=== PATIENT | female | born 1985 | race Caucasian/White ===

== ENCOUNTER → 2017-12-07 13:58 | Outpatient (CLI) | payer MEDICAID, SELFPAY ==
[2017-12-07 17:12] LABS: Chlamydia Trachomatis by PCR Negative (Negative); Neisserai gonorrhoeae by PCR Negative (Negative); Probe Check PASS; Sample Adequacy Control PASS; Specimen Processing Control PASS
== END ==
PROVIDERS: Visit Provider Obstetrics & Gynecology
DX: Z11.3 Encounter for screening for infections with a predominantly sexual mode of transmission (principal)
CPT/HCPCS: 87491; 87591

== ENCOUNTER 2017-12-17 08:56 | Emergency (ER) | payer MEDICAID, SELFPAY ==
[2017-12-17 08:58] VITALS: BP 158/87; PULSE 70; RESP 17; TEMP 36.6; O2SAT 98; BMI 62.1
--- NOTE | 2017-12-17 09:13 | ED.VISSUMM ---
- ER Visit Summary Date of Service: 12/17/17 Chief Complaint: Left-sided neck pain, headache History of Present Illness: The patient is a 32 F with history of migraine headache who is otherwise healthy presents to the emergency department left-sided neck pain. Patient states she has been having the symptoms intimately for the past 3 weeks. She states she noticed some swelling in her glands. Over the past few days the pain is gotten worse. Today, she began have worsening pain in her posterior neck that was worse with movement. She denies any trouble speaking or swallowing. Eating does not seem to make it worse. She was able to take her medications this morning without issue. She denies any fevers or chills. She has had no visual change. She states this feels different than in her normal migraines. She denies any history of immunosuppression. She denies any changes in gait. Physical Examination: Well-appearing patient is in no acute distress. Head is normocephalic, atraumatic. Pupils equal round reactive, extraocular muscles intact. There is no temporal artery tenderness. There is no vesicular rash. Neck supple. Kernig's and Brudzinski's are negative. Patient does have some tender adenopathy on the left. Submental space is soft. No evidence of salivary obstruction. No trismus or stridor. Heart regular rate and rhythm. Lungs clear, chest nontender. Abdomen soft, nontender, nondistended. Neuro exam displays no focal or lateralizing deficit. 2+ symmetric lower extremity reflexes. No clonus. No ataxia or gait abnormality. Test Results: [] Emergency Department Course and Treatment: Patient symptoms do seem more consistent with a cervical lymphadenitis. She is no bruit. She has no symptoms that concern me otherwise for vertebral or basilar artery dissection. The patient has no evidence of Too angina. She has no trismus or stridor. There is no significant edema. She is tender along the left anterior cervical lymph nodes. She was complaining of mild headache. Patient was given migraine abortive medications with improvement. With her persistence of symptoms, I am going to treat the patient with oral antibiotics. She was counseled on concerning symptoms and reasons to return. The patient will be discharged home. Treatment Plan: [] Disposition: Discharge Impression:. Left cervical lymphadenitis This note was generated with [employer] software. It may contain incorrect words, spelling, and punctuation that were not noted in review of the chart prior to signing ED Disposition - Plan for ED Patient: Chief Complaint: Other, Pain/Inj Instructions: ED Cervical Adenitis Abx Tx Prescriptions: Amox/Clavulanate Tablet [Augmentin Tablet] 875 mg PO Q12H #20 tab Referrals: Thomas Taylor MD [Primary Care Provider] -
[2017-12-17] MEDS: 0.9% Normal Saline 1,000 ML 999 ML IV (09:37)
[2017-12-17] MEDS: Ketorolac 30 MG/ML Syringe IV (09:41)
[2017-12-17] MEDS: DiphenhydrAMINE 50 MG/ML Syringe 25 MG IV (09:41)
[2017-12-17] MEDS: proCHLORPERazine 10 MG/2 ML Vial IV (09:41)
[2017-12-17 10:27] VITALS: BP 147/89; PULSE 83; RESP 16; O2SAT 99
== END 2017-12-17 10:28 | disposition home or self-care (01) ==
LOC: ED 09:58
PROVIDERS: Emergency Provider Emergency Medicine; Family Provider Family Medicine; PCP Family Medicine
DX: I88.9 Nonspecific lymphadenitis, unspecified (principal); R51 Headache; E66.9 Obesity, unspecified; I10 Essential (primary) hypertension; Z79.899 Other long term (current) drug therapy
CPT/HCPCS: 96361; 96374; 96375; 99283; J7030; A4216

== ENCOUNTER → 2019-03-30 | Outpatient (CLI) | payer MEDICAID, SELFPAY ==
[2019-04-02 12:49] LABS: HPV Reflexed? NOT INDICATED
== END | disposition home or self-care (01) ==
LOC: LABSPEC 13:51
PROVIDERS: Visit Provider Obstetrics & Gynecology
DX: Z12.4 Encounter for screening for malignant neoplasm of cervix (principal)
CPT/HCPCS: 88175; G0145

== ENCOUNTER → 2019-06-01 | Outpatient (CLI) | payer MEDICAID, SELFPAY ==
[2019-06-01 13:25] LABS: Lipase 107 U/L (73-393)
== END | disposition home or self-care (01) ==
LOC: LABSPEC 13:00
PROVIDERS: Family Provider Family Medicine; PCP Family Medicine; Referring Provider Family Medicine; Visit Provider Family Medicine
DX: R10.33 Periumbilical pain (principal); R11.0 Nausea
CPT/HCPCS: 83690; 86140

== ENCOUNTER 2021-06-03 20:27 | Emergency (ER) | payer MEDICAID, SELFPAY ==
[2020-07-10 14:24] VITALS: BMI 62.1
[2021-06-03 20:28] VITALS: BP 136/73; PULSE 80; RESP 18; TEMP 36.1; O2SAT 98; BMI 62.8
--- NOTE | 2021-06-03 22:14 | EDS_ITS ---
HPI HPI - Female History of Present Illness Chief Complaint: Vag Bleeding Informant: patient Pain Pain: Positive for Pelvic Pain Onset: Today Context: Gradual Onset Timing: Intermittent Quality: Positive for Cramping Current Severity: Mild Maximum Severity: Mild Bleeding Issue: Positive for Vaginal bleeding and Passing clots Onset: Today Timing: Intermittent Current Severity: Similar to period Severity: Moderate Associated Symptoms P: 2 Ab: 0 Narrative Narrative: 35-year-old female G2, P2 Ab0. Has an IUD in place for last 5 years. States her last menstrual period was about 4 months ago. Today she started having vaginal bleeding with clots and pelvic cramping. She denies discharge. She denies dysuria or hematuria. She denies fever. She has had 2 prior C- sections but no other MEDICAL TECHNOLOGIST PRN surgery. Also a prior appendectomy and cholecystectomy. Prior similar symptoms: No Recent Illness/Hospitalization: No PFSH PFSH Medical History Anxiety CPAP (continuous positive airway pressure) dependence Depression Hypertension Sleep apnea Home Medications propranolol 40 mg PO BID 01/08/17 [History Last Taken Unknown] cholecalciferol (vitamin D3) [Vitamin D3] 1,200 units PO DAILY 04/12/17 [History Last Taken Unknown] ferrous sulfate 1 tab PO DAILY 04/12/17 [History Last Taken Unknown] levonorgestrel [Mirena] 1 ea VAGINALLY UD 04/12/17 [History Last Taken Unknown] sertraline 50 tab PO DAILY 04/28/17 [History Last Taken Unknown] Multi Vitamin 1 tab DAILY 06/03/21 [History Last Taken Unknown] Allergy/AdvReac Type Severity Reaction Status Date / Time No Known Allergies Allergy Verified 06/03/21 20:31 Surgical History History of appendectomy History of History of cholecystectomy Social History Smoking Status: Never smoker ROS ROS ED ROS Narrative Patient denies recent illness. Review of Systems ROS Unobtainable: Denies due to encephalopathy Constitutional Constitutional ED: Denies chills or fever(s) Eyes Eyes: Denies change in vision ENT ENT ED: Denies ear pain or sore throat Cardiovascular Cardiovascular: Denies chest pain or palpitations Respiratory/Chest Respiratory/Chest: Denies cough or dyspnea Gastrointestinal Gastrointestinal: Denies abdominal pain, diarrhea, nausea or vomiting Genitourinary Genitourinary ED: Denies dysuria or hematuria Musculoskeletal Musculoskeletal: Denies myalgias Integumentary Denies rash Neurologic Neurologic: Denies headache(s) Psychiatric Psychiatric: Denies depression Endocrine Endocrinology: Denies polyuria Hematologic/Lymphatic Hematologic/Lymphatic: Denies easy bruising Allergic/Immunologic Allergic/Immunologic ED: Denies urticaria EXAM Physical Exam Narrative Exam Narrative: Well-appearing 35-year-old female. Vital signs are stable afebrile. Blood pressure 136/73 pulse of 80. HEENT exam unremarkable. Lungs clear to auscultation. Heart regular rate and rhythm no murmur. Abdomen soft nontender normal bowel sounds no peritoneal signs. Patient is moving all 4 extremities. No edema. Skin unremarkable no bruising. Neurologically she is awake and alert. Const Vital Signs: 06/03/21 20:28 Temperature 96.9 F L Temperature Source Temporal Pulse Rate 80 Respiratory Rate 18 Blood Pressure 136/73 H Blood Pressure Mean 94 Pulse Ox 98 Oxygen Delivery Method Room Air Positive well nourished, well developed and obese General Appearance ED: well developed and NAD Nutritional Appearance: obese HEENT Reports moist mucous membranes Negative for trauma or tenderness Eyes PERRL and EOMs intact bilaterally Neck no lymphadenopathy, supple and no JVD Thyroid: Negative for tender Chest Wall inspection of chest normal and palpation of chest normal Resp normal respiratory effort and clear to auscultation bilaterally Cardio regular rate, regular rhythm, S1 normal heart sound, no murmurs and no JVD GI normal to inspection, nondistended, normoactive bowel sounds, soft to palpation, non-tender, non-distended and no masses Auscultation: normoactive bowel sounds Palpation: Negative for tender, guarding or rigid Extremity normal to inspection and full ROM General Extremety ED: Negative for edema or tenderness General Extremity: Negative for edema Neuro oriented x3 and CN's II-XII intact bilaterally Sensorium / Orientation: alert, oriented to person, oriented to place and oriented to time Psych mental status grossly normal Skin no rashes or lesions noted MDM MDM MDM Narrative Medical decision making narrative: 35-year-old female G2, P2 Ab0 with an IUD. Complaint of vaginal bleeding pelvic cramping. Serum test to be obtained and blood count. Pelvic exam not done around 11:20 PM female nurse present in room. External exam unremarkable. Speculum exam small amount of blood in the vaginal vault. No clots. No discharge. Bimanual exam minimal right adnexal discomfort. Difficult due to the patient's body habitus. I could not appreciate either ovary. Patient clinically doing well. She had I went over her labs. She will follow-up with [facility] her gynecology group for further evaluation. Lab Data Attestation: I reviewed the patient's lab results. Lab results narrative: CBC unremarkable hemoglobin 12.4 patient's baseline is typically 12-14. test negative. Labs: Laboratory Results - last 24 hr 06/03/21 06/03/21 22:18 22:18 WBC 9.4 RBC 4.11 L Hgb 12.4 Hct 38.5 MCV 93.7 MCH 30.2 MCHC 32.2 RDW Std Deviation 43.6 RDW Coeff of Scooby 12.7 Plt Count 293 MPV 9.4 Serum , Qual NEGATIVE Discharge Plan Triage Chief Complaint: Vag Bleeding ED Provider: Adarsh Flynn Dx/Rx/DC Orders Clinical Impression: Abnormal vaginal bleeding Instructions: ED Dysfunctional Uterine Bleeding Prescriptions: No Action propranolol 40 MG tablet 40 mg PO BID RF: 0 levonorgestrel [Mirena] 1 EACH Iud 1 ea VAGINALLY UD RF: 0 ferrous sulfate 325 MG tablet 1 tab PO DAILY RF: 0 cholecalciferol (vitamin D3) [Vitamin D3] 1,000 UNIT capsule 1,200 units PO DAILY RF: 0 sertraline 50 MG tablet 50 tab PO DAILY RF: 0 Multi Vitamin 1 tab DAILY RF: 0 Primary Care Provider: Thomas Taylor Referrals: Thomas Taylor MD [Primary Care Provider] - Marisol Day DO [STAFF PHYSICIAN] - As soon as possible Activity Restrictions/Additional Instructions: Follow-up with [facility] soon as possible. Call tomorrow to get an appointment. Plenty of fluids and rest. Alternate Tylenol Motrin for pain. Disposition Disposition: Home, Self Care
[2021-06-03 22:29] LABS: Hematocrit 38.5 % (37-47); Hemoglobin 12.4 g/dL (12.0-15.0); Mean Corp Hgb Conc 32.2 g/dL (32-36); Mean Corpuscular Hgb 30.2 pg (27.0-32.0); Mean Corpuscular Volume 93.7 fL (81-99); Mean Platelet Vol. 9.4 fl (6.2-12.0); Platelet Count 293 K/mm3 (150-450); RBC Distribution Width CV 12.7 % (11.6-14.6); RBC Distribution Width SD 43.6 fl (35.1-43.9); Red Blood Count 4.11 M/mm3 (4.2-5.4); White Blood Count 9.4 K/mm3 (4.4-11.0)
[2021-06-03 22:42] LABS: Internal QC Validated? YES +Cl - CLEAR BKGD; Pregnancy, Serum, hCG Quali. NEGATIVE Negative
[2021-06-03 23:29] VITALS: BP 133/78; PULSE 88; RESP 16; O2SAT 98
== END 2021-06-03 23:31 | disposition home or self-care (01) ==
PROVIDERS: Emergency Provider Emergency Medicine; PCP Family Medicine
DX: N93.9 Abnormal uterine and vaginal bleeding, unspecified (principal); F41.9 Anxiety disorder, unspecified; F32.9 Major depressive disorder, single episode, unspecified; I10 Essential (primary) hypertension; E66.9 Obesity, unspecified; Z79.899 Other long term (current) drug therapy
CPT/HCPCS: 84703; 85027; 99282; A4216

== ENCOUNTER → 2021-08-20 11:30 | Outpatient (CLI) | payer MEDICAID, SELFPAY ==
--- NOTE | 2021-08-20 10:15 | EMB_PTH ---
PATIENT: VON BRICENO LOC: [facility] U#:[id number] AGE/SX: 40/F ROOM: RE08/20/[address]: Dr. Marisol Day DO : 1985 BED: DIS: SPEC #: [id number] RECD: 08/20/21 11:31 STATUS: RUPERTO JEEVAN #: [id number] LILLI: 08/20/21 10:[address]: Marisol Day DEPT: SURGICAL PATHOLOGY RECD BY: Marni Pang ENTERED: 08/20/21 11:43 SP TYPE: ENDOM BX/C LIZZY DR: Dr. Thomas Taylor MD Tissues: Endometrium, NOS Procedures: Surgery Specimen Level IV HEADER OPERATION: Endometrial biopsy PRE-OP DIAGNOSIS: Abnormal uterine bleeding TISSUE SUBMITTED: Endometrial biopsy MICROSCOPIC DIAGNOSIS Endometrial biopsy: Scant minute fragments of superficial benign endometrial tissue. Fragments of blood clot. See comment. SARAH BETH:ludin 08/21/2021 COMMENT The specimen predominantly consists of blood clots. Correlation with clinical findings and appropriate follow up are necessary. Rebiopsy is suggested if clinically indicated. MICROSCOPIC DESCRIPTION Slides are reviewed. GROSS DESCRIPTION Received in fixative is one container labeled with the patient's name and designated endometrial biopsy. The specimen consists of multiple fragments of hemorrhagic soft tissue that in aggregate measure 3 x 2.5 x 0.3 cm. The specimen is totally submitted in one cassette. / SJ:ludin 08/20/21 TC: Cannot code CPT: 19616
[2021-08-20 12:35] LABS: Ferritin 221 ng/mL (8-252); T4 Free Direct 1.03 ng/dL (0.76-1.46); Thyroid Stim Hormone (TSH) 1.47 uIU/mL (0.358-3.74)
== END ==
PROVIDERS: PCP Family Medicine; Referring Provider Student in an Organized Health Care Education/Training Program; Visit Provider Student in an Organized Health Care Education/Training Program
DX: N93.9 Abnormal uterine and vaginal bleeding, unspecified (principal)
CPT/HCPCS: 36415; 82728; 84439; 84443; 88305

== ENCOUNTER → 2021-09-20 | Outpatient (CLI) | payer MEDICAID, SELFPAY | END | disposition home or self-care (01) | LOC: LABSPEC 10:56 | PROVIDERS: PCP Family Medicine; Visit Provider Student in an Organized Health Care Education/Training Program | DX: Z03.818 Encounter for observation for suspected exposure to other biological agents ruled out (principal) | CPT/HCPCS: 87635; U0005; U0003 ==

== ENCOUNTER 2021-09-26 08:04 | Day surgery (SDC) | payer MEDICAID, SELFPAY ==
[2021-09-20 12:16] LABS: Hematocrit 38.5 % (37-47); Hemoglobin 12.2 g/dL (12.0-15.0); Mean Corp Hgb Conc 31.7 g/dL (32-36); Mean Corpuscular Hgb 29.1 pg (27.0-32.0); Mean Corpuscular Volume 91.9 fL (81-99); Mean Platelet Vol. 9.6 fl (6.2-12.0); Platelet Count 340 K/mm3 (150-450); RBC Distribution Width SD 43.4 fl (35.1-43.9); Red Blood Count 4.19 M/mm3 (4.2-5.4); White Blood Count 8.4 K/mm3 (4.4-11.0)
--- NOTE | 2021-09-25 20:55 | HP.PCM.OB_ITS ---
History and Physical Date of Admission: 09/26/21 HISTORY OF PRESENT ILLNESS: On 09/20/2021, Bailee Higuera, a 36 year old female 2 0 0 0 2, presented for: hysteroscopy, dilation and curettage, Lani ablation for heavy menstrual bleeding. Has expulsed IUD. Required progesterone to decrease last heavy menstrual bleed. Interfering with daily life. ALLERGIES: NKA and No Known Drug Allergies MEDICAL HISTORY: 1. Obesity 2. Depression 3. Hypertension MEDICATIONS HISTORY: 1. Multi For Her 18 mg iron-600 mcg-80 mcg tablet, daily 2. propranolol 40 mg tablet, BID 3. Zoloft 50 mg tablet 4. iron 325 mg (65 mg iron) tablet, 1po qday REVIEW OF SYSTEMS: GENERAL - Denies fever, or chills SKIN - Denies skin changes EYES - Denies visual changes EARS - Denies difficulty hearing NOSE - Denies nasal congestion or bleeding MOUTH - Denies sore throat or difficulty swallowing NECK - Denies pain or swelling RESPIRATORY - Denies shortness of breath or wheezing CARDIOVASCULAR - Denies palpitations or chest pain GASTROINTESTINAL - Denies nausea, vomiting, diarrhea, constipation GENITOURINARY - vaginal bleeding MUSCULOSKELETAL - Denies joint or muscle pain NEUROLOGICAL - Denies localized numbness or weakness PSYCHIATRIC - Denies depression or anxiety ENDOCRINE - Denies heat or cold intolerance, weight loss or gain HEMATO-IMMUNOLOGIC - Denies excessive bleeding with cuts SURGICAL HISTORY: 1. Appendectomy 2. 06/29/2008 Amee Dsouza M.D. Repeat 3. 03/18/2005 Amee Dsouza M.D., Yamile Francis M.D. CPD 4. [place] Teeth Removal MENSTRUAL HISTORY: LMP Known?- DefiniteAmount/Duration - 2 days spotting, Regularity - Irregular, Frequency - variable days, LMP - 08/13/21, Age Onset Menarche - 12 PAST PREGNANCIES: Total Pregnancies - 2; Full Term Pregnancies - 2; Premature - 0; Abortions, Induced - 0; Abortions, Spontaneous - 0; Ectopics - 0; Multiple Births - 0; Living Children - 2 FAMILY HISTORY: No history of blood clots, bleeding disorders, or issues with anesthesi SOCIAL HISTORY: Alcohol Use - denies drinking Smoking - denies smoking Illicit Drug Use - denies use of street drugs BP- 124/80 Sitting, Right arm, regular cuff Weight- 376.0 lbs Height- 63.0 inch BMI:66.60 CONSTITUTIONAL - NAD, well nourished, and well developed SKIN - No rash, lesions, or ulcers HEENT - Normocephalic, PERRLA, EOMI NECK - No nodes, no nuchal rigidity and thyroid normal size and texture LYMPH NODES - Palpation of lymph nodes in neck and groins within normal limits LUNGS - CTA x2 without wheezes, crackles or rales CARDIAC - Regular rate and rhythm without rubs, murmurs, or gallops ABDOMEN - Without hepatosplenomegaly, distention, masses, rebound, or guarding; normal bowel sounds; no hernias EXTREMITIES - No edema or calf tenderness NEUROLOGICAL - Cranial nerves II-XII grossly intact PSYCHIATRIC - A and O to time, place, person, mood and affect ASSESSMENT: PLAN BY DIAGNOSIS: 1. Abnormal Uterine And Vaginal Bleeding, Heavy menstrual bleeding affecting daily life. Ultrasound demonstrating fibroids letter unchanged in size from about 1 year ago. Expulsed IUD EMB was completed with benign pathology. Discussed options for further management. Recommend hysteroscopy, dilation curettage, ablation. Risks/benefits/alternatives discussed with patient. Risks include but are not limited to: bleeding to the point o transfusion, infection, injury to surrounding tissue including bowel or bladder/uterine
[2021-09-26] MEDS: Lactated Ringers 1,000 ML 15 ML IV (08:20)
[2021-09-26 08:37] VITALS: BP 130/79; PULSE 71; RESP 16; TEMP 36.3; O2SAT 97; BMI 66.7
[2021-09-26 08:52] LABS: Internal QC Validated? YES +Cl - CLEAR BKGD
[2021-09-26 08:53] LABS: Pregnancy, Urine Negative Negative
--- NOTE | 2021-09-26 09:50 | EMB_PTH ---
PATIENT: VON BRICENO LOC: [facility] [place] U#:[id number] AGE/SX: 36/F ROOM: RE09/26/[address]: Dr. Marisol Day DO : 1985 BED: DIS: 09/26/2021 SPEC #: [id number] RECD: 09/26/21 11:38 STATUS: RUPERTO REJay #: [id number] LILLI: 09/26/21 09:[address]: Marisol Day DEPT: SURGICAL PATHOLOGY RECD BY: Marni Pang ENTERED: 09/26/21 11:47 SP TYPE: ENDOM BX/C LIZZY DR: Dr. Thomas Taylor MD Tissues: Endometrium, NOS Procedures: Surgery Specimen Level IV HEADER OPERATION: Hysteroscopy, D & C Lani PRE-OP DIAGNOSIS: Abnormal uterine and vaginal bleeding TISSUE SUBMITTED: Endometrial curettings MICROSCOPIC DIAGNOSIS Endometrium, curettings: Secretory endometrium with glandular and stromal breakdown. Rare strips of benign superficial endocervix. AM:ludin 09/27/2021 MICROSCOPIC DESCRIPTION Slides are reviewed. GROSS DESCRIPTION Received in fixative is one container labeled with the patient's name and designated endometrial curettings. The specimen consists of multiple fragments of hemorrhagic soft tissue that in aggregate measure 4 x 3 x 0.3 cm. The entire specimen is submitted in two cassettes. / SJ:ludin 09/26/21 TC:5 CPT: 56692
--- NOTE | 2021-09-26 10:31 | OP.PCM_ITS ---
Report of Operation Date of Procedure: 09/26/21 Pre-Operative Diagnosis: Menorrhagia Post-Operative Diagnosis: Menorrhagia Surgery/Procedure Performed:: Hysteroscopy, dilation and curettage, endometrial ablation Description of Surgical Findings:: Normal-appearing external genitalia. Moderate uterine descensus. Fluffy and thickened endometrial cavity. Type of Anesthesia: MAC Specimen's removed: Endometrial curettings Estimated Blood Loss (mL): 5 Fluids Replaced: 600cc Description of Procedure: Indications/risk/benefits: 36-year-old female with menorrhagia for hysteroscopy, dilation curettage, Lani endometrial ablation. All risk, benefits, alternatives were discussed with patient. Risks include but are not limited to: Risk of bleeding to the point transfusion, infection, injury to surrounding tissue including bowel/bladder/uterine perforation, VTE, ICU admission. Patient consented. Procedure: Patient taken to the operating room, MAC anesthesia induced. Patient placed in the dorsal lithotomy position and prepped and draped in the usual sterile fashion. Bladder drained 75 cc clear urine. Dolan retractor placed in the posterior vagina and anterior lip of the cervix grasped with single-tooth tenaculum. Cervix sequentially dilated. Hysteroscope placed through cervical canal and endometrial cavity inspected with findings as above. Curettage completed in 360 degree manner. Cervical length 4 cm, uterus sounded 10 cm. Lani device open. Cavity length set to 6 cm. Due to cervical dilation, 6 cc air insufflated into the Lani balloon. Lani device passed cavity assessments. Device deployed. Izzy noted on the Lani array upon removal. Tenaculum removed from the cervix, hemostatic. Retractor removed. At the end of the procedure all needle, lap, sponge counts were correct. Lani [facility] Jake Hernandes present. Complications None
--- NOTE | 2021-09-26 10:31 | PCM.DC ---
Discharge Instructions Diet Discharge Diet: No restrictions Activity Discharge Activity: Return to Normal Activity and May Shower May resume sexual activity in: 2 weeks Weight Bearing Status: Weight bearing as tolerated Lifting Restrictions: None Dressing / Incision Call your doctor if you observe: Fever of 101 or Higher, Change in Color, Inability to urinate, Using more than 1 pad per hour, Shortness of breath, Dizziness, Swelling in the ankles, Chest pain and Calf discomfort Follow Up Care Please Follow Up With: Marisol Day DO When: 2-week post operative Test Results: Test results from this visit will be discussed in further detail at your follow-up appointment, if applicable. Discharge Plan Admission Primary Reason for Your Visit: Ablation Attending Provider: Marisol Day Primary Care Provider: Thomas Taylor Discharge Orders/Prescriptions Prescriptions: No Action propranolol 40 MG tablet 40 mg PO BID RF: 0 ferrous sulfate 325 MG tablet 1 tab PO DAILY RF: 0 cholecalciferol (vitamin D3) [Vitamin D3] 1,000 UNIT capsule 1,200 units PO DAILY RF: 0 sertraline 50 MG tablet 50 tab PO DAILY RF: 0 Multi Vitamin 1 tab DAILY RF: 0 Referrals / Follow Up: Thomas Taylor MD [Primary Care Provider] - Disposition Disposition (needs filled in before D/C Order can be placed): Home, Self Care
[2021-09-26 11:15] VITALS: BP 102/58; BP 130/79; PULSE 63; RESP 16; TEMP 36.3; O2SAT 100
[2021-09-26 11:20] VITALS: BP 109/49; BP 130/79; PULSE 65; RESP 16; O2SAT 100
[2021-09-26 11:25] VITALS: BP 128/87; BP 130/79; PULSE 65; RESP 16; O2SAT 99
[2021-09-26 11:33] VITALS: BP 102/44; BP 130/79; PULSE 64; RESP 16; TEMP 36.5; O2SAT 99
[2021-09-26 12:25] VITALS: BP 130/79
== END 2021-09-26 12:28 | disposition home or self-care (01) ==
LOC: SDC 08:05 → AC 08:05
PROVIDERS: Anesthesiology; PCP Family Medicine; Referring Provider Student in an Organized Health Care Education/Training Program; Visit Provider Student in an Organized Health Care Education/Training Program
PROC: 0U5B8ZZ Destruction of Endometrium, Via Natural or Artificial Opening Endoscopic (ICD-10-PCS; CPT 58558; principal; 2021-09-26 09:35)
DX: N92.0 Excessive and frequent menstruation with regular cycle (principal); E66.01 Morbid (severe) obesity due to excess calories; F32.A Depression, unspecified; I10 Essential (primary) hypertension; Z79.899 Other long term (current) drug therapy; Z68.44 Body mass index [BMI] 60.0-69.9, adult
CPT/HCPCS: 58563; 36415; 81025; 85027; 86850; 86900; 86901; 88305; J7120; J2405

== ENCOUNTER 2022-04-04 12:50 | Emergency (ER) | payer MEDICAID, SELFPAY ==
[2022-04-04 12:51] VITALS: BP 156/95; PULSE 64; RESP 15; TEMP 36.4; O2SAT 96; BMI 68.2
[2022-04-04 12:52] VITALS: BP 156/95; PULSE 64; RESP 15; TEMP 36.4; O2SAT 96
--- NOTE | 2022-04-04 13:30 | CT_ITS ---
STUDY: CT Abdomen And Pelvis W/ Contrast Injection 04/04/2022 2:48 PM REASON FOR EXAM: Female, 36 years old. ABDOMINAL PAIN abdominal pain TECHNIQUE: Transaxial images were obtained without oral contrast, and with 75mL Isvoue 370 intravenous contrast. Individualized dose optimization techniques were used for this CT. COMPARISON: 11.23.15. FINDINGS: The visualized lung bases are unremarkable. The visualized portions of the heart are within normal limits. There is hepatomegaly with diffuse hepatic enlargement. There is non-visualization of the gallbladder, which may be secondary to either contraction or a prior cholecystectomy. There is moderate splenomegaly. Unremarkable pancreas. Unremarkable bilateral adrenal glands. No acute findings of the right kidney. No acute findings of the left kidney. Unremarkable visualized stomach. There are dilated loops of the small intestine with a non-distended colon consistent with a small bowel obstruction. There is a umbilical hernia containing small bowel. Strangulation or incarceration is not excluded. Exclusion is based on physical examination. Physical examination may be warranted in individuals with hernias. Surveillance may be warranted in individuals with hernias. Unremarkable colon. There is non-visualization of the appendix. There are no acute findings of the abdominal aorta. Unremarkable inferior vena cava. Subcentimeter mesenteric lymph nodes. Unremarkable urinary bladder. Normal visualized uterus. There is an ventral hernia containing fat which has enlarged. Unremarkable osseous structures. CT/Abdomen/Pelvis W IV Cont ONLY IMPRESSION: (NOT LISTED IN ORDER OF SIGNIFICANCE) There are dilated loops of the small intestine with a non-distended colon consistent with a mild early small bowel obstruction. The transition point is within a umbilical hernia containing small bowel. Strangulation or incarceration is not excluded. There is an ventral hernia containing fat which has enlarged. There is moderate splenomegaly. Other findings as above. Electronically Signed: Rachid Gottlieb MD at 14:54 EDT ,
--- NOTE | 2022-04-04 13:31 | EDS_ITS ---
HPI History of Present Illness Chief Complaint: Abd Pain Informant: patient Narrative Narrative: 36-year-old female states that she went to bed last night feeling fine. When she woke up this morning she had abdominal pain very generalized. She states it feels worse around her umbilicus and up into her epigastrium. She has had 1 episode of vomiting. She notes some mild constipation but states that that is normal for her. No fevers. No URI symptoms. She has had prior cholecystectomy and appendectomy. No history of pancreatitis. No recent medication changes. Patient states that it is a cramping pain at rest but becomes sharp when she attempts to move [facility] Medical History Anxiety Cancer CPAP (continuous positive airway pressure) dependence Depression Hypertension Leg cramps Low iron Migraine headache Non-smoker Shortness of breath on exertion Sleep apnea Wears glasses Home Medications propranolol 40 mg PO BID 01/08/17 [History Last Taken Unknown] cholecalciferol (vitamin D3) [Vitamin D3] 1,200 units PO DAILY 04/12/17 [History Last Taken Unknown] ferrous sulfate 1 tab PO DAILY 04/12/17 [History Last Taken Unknown] sertraline 50 tab PO DAILY 04/28/17 [History Last Taken Unknown] Multi Vitamin 1 tab DAILY 06/03/21 [History Last Taken Unknown] hydrocodone-acetaminophen 1 tab PO Q6H PRN PRN 3 Days #12 tablet 04/04/22 [Rx Last Taken Unknown] Allergy/AdvReac Type Severity Reaction Status Date / Time No Known Allergies Allergy Verified 04/04/22 12:52 Surgical History History of appendectomy History of History of cholecystectomy Social History (Updated 04/04/22 @ 13:[address] Kiko Colmenares DO) current gender identity: female Smoking Status: Never smoker ROS ROS ED Constitutional Constitutional ED: Denies chills or weight loss Eyes Eyes: Denies change in vision or diplopia ENT ENT ED: Denies ear pain, rhinorrhea or sore throat Cardiovascular Cardiovascular: Denies chest pain, orthopnea, palpitations or racing heartbeat Respiratory/Chest Respiratory/Chest: Denies cough, dyspnea or orthopnea Gastrointestinal Gastrointestinal: Reports abdominal pain, nausea and vomiting; Denies diarrhea Genitourinary Genitourinary ED: Denies dysuria, hematuria or urinary frequency Musculoskeletal Musculoskeletal: Denies arthralgias or myalgias Integumentary Denies abscess or rash Neurologic Neurologic: Denies headache(s) or weakness Psychiatric Psychiatric: Denies anxiety, depression, suicidal ideation or suicidal thoughts Endocrine Endocrinology: Denies polydipsia, polyphagia or polyuria Allergic/Immunologic Allergic/Immunologic ED: Denies mouth swelling, tongue swelling or urticaria EXAM Physical Exam Const Vital Signs: 04/04/22 12:51 04/04/22 12:52 Temperature 97.5 F L 97.5 F L Temperature Source Temporal Temporal Pulse Rate 64 64 Respiratory Rate 15 15 Blood Pressure 156/95 H 156/95 H Blood Pressure Mean 115 115 Pulse Ox 96 96 Oxygen Delivery Method Room Air Room Air Positive well nourished, well developed and obese General Appearance ED: well developed Nutritional Appearance: obese HEENT Reports normocephalic, head/scalp atraumatic, TM's clear and moist mucous membranes Negative for trauma Tympanic Membrane ED: Yes TM's clear Eyes PERRL and EOMs intact bilaterally Neck no lymphadenopathy, supple and no JVD Resp normal respiratory effort and clear to auscultation bilaterally Cardio regular rate, regular rhythm and no murmurs GI GI Narrative: Patient reports generalized tenderness to palpation throughout the entire abdomen. Confident examination is limited due to habitus Auscultation: normoactive bowel sounds Palpation: soft and tender Back/Spine no CVA tenderness and normal ROM Extremity normal to inspection General Extremety ED: Negative for edema General Extremity: Negative for edema Neuro oriented x3 and CN's II-XII intact bilaterally Sensorium / Orientation: alert Motor Exam: strength 5/5 throughout Psych mental status grossly normal Mood & Affect: Negative for depressed or tearful Skin no rashes or lesions noted and no wounds MDM MDM MDM Narrative Medical decision making narrative: Basic blood work obtained and was negative. test is negative. CT of the abdomen pelvis is concerning for an incarcerated umbilical hernia. Dr. Mcgowan from surgery came to the emergency department and evaluated the patient. He was able to reduce the hernia. If she passes eating and drinking test she will be discharged home. She is instructed to follow-up bariatric surgical center for repair of the hernia. Lab Data Attestation: I reviewed the patient's lab results. Labs: Laboratory Results - last 24 hr 04/04/22 04/04/22 04/04/22 13:44 13:44 13:44 WBC 10.1 RBC 4.07 L Hgb 11.8 L Hct 37.1 MCV 91.2 MCH 29.0 MCHC 31.8 L RDW Std Deviation 45.3 H RDW Coeff of Scooby 13.8 Plt Count 302 MPV 9.4 Immature Gran % (Auto) 0.600 Neut % (Auto) 75.6 H Lymph % (Auto) 15.7 L [place] % (Auto) 4.9 Eos % (Auto) 2.9 Baso % (Auto) 0.3 Absolute Neuts (auto) 7.6 Absolute Lymphs (auto) 1.58 Nucleated RBC % 0 Sodium 140 Potassium 4.4 Chloride 110 H Carbon Dioxide 25.0 Anion Gap 5 BUN 8 Creatinine 0.92 Estim Creat Clear Calc 68.59 Est GFR (MDRD) Af Amer 87 Est GFR (MDRD) Non-Af 72 BUN/Creatinine Ratio 8.7 L Glucose 111 H Calcium 8.8 Total Bilirubin 0.30 AST 14 L ALT 22 Alkaline Phosphatase 72 Total Protein 7.3 Albumin 3.3 Globulin 4.0 Albumin/Globulin Ratio 0.8 L Lipase 70 L Serum , Qual NEGATIVE Radiography Diagnostic Testing: Clinical Impression(s) from Imaging Studies Abdomen/Pelvis CT 04/04/22 13:30 IMPRESSION: (NOT LISTED IN ORDER OF SIGNIFICANCE) There are dilated loops of the small intestine with a non-distended colon consistent with a mild early small bowel obstruction. The transition point is within a umbilical hernia containing small bowel. Strangulation or incarceration is not excluded. There is an ventral hernia containing fat which has enlarged. There is moderate splenomegaly. Other findings as above. Electronically Signed: Rachid Gottlieb MD at 14:54 EDT , Discharge Plan Triage Chief Complaint: Abd Pain ED Provider: Kiko Colmenares Dx/Rx/DC Orders Clinical Impression: Hernia, umbilical, Abdominal pain Instructions: ED Hernia (Adult) Prescriptions: New hydrocodone-acetaminophen [hydrocodone-acetaminophen] 1 TABLET tablet 1 tab PO Q6H PRN PRN (Reason: Pain) 3 Days Qty: 12 RF: 0 No Action propranolol 40 MG tablet 40 mg PO BID RF: 0 ferrous sulfate 325 MG tablet 1 tab PO DAILY RF: 0 cholecalciferol (vitamin D3) [Vitamin D3] 1,000 UNIT capsule 1,200 units PO DAILY RF: 0 sertraline 50 MG tablet 50 tab PO DAILY RF: 0 Multi Vitamin 1 tab DAILY RF: 0 Primary Care Provider: Thomas Taylor Referrals: Thomas Taylor MD [Primary Care Provider] - Sj Lim MD [NON-STAFF] - As soon as possible (For bariatric surgery repair of your hernia) Activity Restrictions/Additional Instructions: The phone number for [facility] is [phone]. It is recommended that a bariatric specialist assist you with fixing this umbilical hernia. Disposition Disposition: Home, Self Care
[2022-04-04] MEDS: Ondansetron 4 MG/2 ML Vial IV (13:45)
[2022-04-04] MEDS: Morphine 4 MG/ML Syringe IV (13:45)
[2022-04-04 13:55] LABS: Absolute Lymphocyte Count 1.58 X10^3/uL (0.83-4.51); Absolute Neutrophil Count 7.6 X10^3/uL (2.0-7.7); Basophil# 0.03 X10^3/uL; Basophil% 0.3 % (0-1); Eosinophil# 0.29 X10^3/uL; Eosinophils% 2.9 % (0-5); Hematocrit 37.1 % (37-47); Hemoglobin 11.8 g/dL (12.0-15.0); Lymphocyte # 1.58 X10^3/ul (0.83-4.51); Lymphocyte % 15.7 % (19-41); Mean Corp Hgb Conc 31.8 g/dL (32-36); Mean Corpuscular Volume 91.2 fL (81-99); Mean Platelet Vol. 9.4 fl (6.2-12.0); Monocyte# 0.49 X10^3/uL; Monocyte% 4.9 % (0-10); NRBC Flagged by Analyzer 0 % (0-5); Neutrophil # 7.63 X10^3/uL (2.7-7.7); Neutrophil % 75.6 % (47-70); Platelet Count 302 K/mm3 (150-450); RBC Distribution Width CV 13.8 % (11.6-14.6); RBC Distribution Width SD 45.3 fl (35.1-43.9); Red Blood Count 4.07 M/mm3 (4.2-5.4); White Blood Count 10.1 K/mm3 (4.4-11.0)
[2022-04-04 14:08] LABS: Internal QC Validated? YES +Cl - CLEAR BKGD; Pregnancy, Serum, hCG Quali. NEGATIVE Negative
[2022-04-04 14:10] LABS: ALB/GLOB Ratio 0.8 RATIO (0.9-2.4); AST(SGOT) 14 U/L (15-37); Alanine Aminotransfer ALT/SGPT 22 U/L (13-56); Albumin, Serum 3.3 g/dL (3.2-5.0); Alkaline Phosphatase 72 U/L (45-117); Anion Gap 5 (5-15); BUN 8 mg/dL (7-18); BUN/Creat Ratio 8.7 RATIO (10-20); Calcium,Total 8.8 mg/dL (8.5-10.1); Chloride 110 mmol/L (98-107); Creatinine, Serum 0.92 mg/dL (0.55-1.02); EST Glomerular Filtration Rate 72 mL/min (>60); Est Glom Filt Rate - Afr Amer 87 mL/min (>60); Estimated Creatinine Clearance 68.59 ml/min; Glucose 111 mg/dL (74-106); Lipase 70 U/L (73-393); Potassium 4.4 mmol/L (3.5-5.1); Protein, Total 7.3 g/dL (6.4-8.2); Sodium Level 140 mmol/L (136-145)
[2022-04-04 16:10] VITALS: PULSE 68; RESP 17; O2SAT 97
== END 2022-04-04 16:12 | disposition home or self-care (01) ==
PROVIDERS: Emergency Provider Emergency Medicine; PCP Family Medicine; Visit Provider Emergency Medicine
DX: K42.9 Umbilical hernia without obstruction or gangrene (principal); R11.2 Nausea with vomiting, unspecified; I10 Essential (primary) hypertension; K59.00 Constipation, unspecified; Z79.899 Other long term (current) drug therapy
CPT/HCPCS: 74177; 80053; 83690; 84703; 85025; 96374; 96375; 99282; Q9967; A4216; J2405